=== PATIENT | male | born 1970 | race Caucasian/White ===

== ENCOUNTER → 2021-08-12 | Outpatient (CLI) | payer OTHER ==
--- NOTE | 2021-08-12 13:07 | Diagnostic Imaging Report ---
INDICATION: Pain in the left knee. TIME OF EXAM: 10:40 AM. FINDINGS: Multiple views of the left knee demonstrate normal alignment. The joint spaces are well maintained. The articular surfaces are smooth. No fracture, dislocation, or effusion is seen. IMPRESSION: No acute bony abnormality is detected. Dictated by: Dictated on workstation # [id number]
== END ==
LOC: RAD FS 10:25
PROVIDERS: ATTEND Nurse Practitioner
DX: M25.562 Pain in left knee (principal)
CPT/HCPCS: 73562

== ENCOUNTER 2022-07-04 01:45 | Emergency (ER) | payer OTHER ==
[~2022-07-04] VITALS: Ht 170 cm; Wt 95.0 kg
--- NOTE | 2022-07-04 01:59 | ED General ---
General Stated Complaint: PASSED OUT Source of Information: Patient, EMS Exam Limitations: No Limitations History of Present Illness Date Seen by Provider: Jul 04, 2022 Time Seen by Provider: 01:54 Initial Comments Patient is a 51-year-old male who presents to the emergency room by ambulance [place]. Patient states that he was sitting at a poker table playing blackjack on a high stool. He states he started to feel little nauseous and knew that he might pass out. He states the hospital fellow caught him. He did not fall out of the chair. He feels back to normal now. He does not have a headache. He denies palpitations or shortness of breath. No abdominal pain or back pain. He denies chest pain, pressure or heaviness or tightness. No recent illnesses. He had not taken his blood pressure pills this evening and EMS reports that when they got to him he was quite hypotensive in the 80s systolic. Not tachycardic heart rate in the 60s. Blood sugar was nor mal. When he came to he was acting normal. He states that he has had a syncopal event in the past similar to this while out at the casino. He states he did not eat dinner, he and his were out and he "won and lost, won and lost". He states he "drank a lot of beer". Timing/Duration: 1/2 Hour Severity: Moderate Associated Systoms: Denies Symptoms Allergies and Home Medications Patient Home Medication List Home Medication List Reviewed: Yes Review of Systems Review of Systems Constitutional: see HPI EENTM: no symptoms reported Respiratory: no symptoms reported Cardiovascular: no symptoms reported Gastrointestinal: nausea Genitourinary: no symptoms reported Musculoskeletal: no symptoms reported Skin: no symptoms reported Psychiatric/Neurological: No Symptoms Reported Physical Exam Vital Signs Vital Signs - First Documented 07/04/22 07/04/22 01:45 03:12 Temp 36.3 Pulse 76 Resp 18 B/P (MAP) 107/78 (88) Pulse Ox 99 O2 Delivery Room Air Capillary Refill : Height, Weight, BMI Height: '" Weight: lbs. oz. kg; BMI Method: General Appearance: No Apparent Distress, WD/WN Eyes: Bilateral Eye Normal Inspection, Bilateral Eye PERRL, Bilateral Eye EOMI HEENT: PERRL/EOMI, Moist Mucous Membranes Neck: Full Range of Motion, Normal Inspection Respiratory: Lungs Clear, Normal Breath Sounds, No Accessory Muscle Use Cardiovascular: Regular Rate, Rhythm, Normal Peripheral Pulses Gastrointestinal: Soft Back: Normal Inspection, No Vertebral Tenderness Extremity: Normal Capillary Refill, Normal Inspection, Normal Range of Motion, Non Tender, No Calf Tenderness Neurologic/Psychiatric: Alert, Oriented x3, No Motor/Sensory Deficits, Normal Mood/Affect, senior category manager II-XII Norm as Tested, Other (jovial, interactive; no focal neuro deficits) Skin: Normal Color, Warm/Dry Progress/Results/Core Measures Suspected Sepsis SIRS Temperature: Pulse: Respiratory Rate: Laboratory Tests 07/04/22 02:10: White Blood Count 8.8 Blood Pressure / Mean: Laboratory Tests 07/04/22 02:10: Creatinine 1.23, Platelet Count 232, Total Bilirubin 1.1H Results/Orders Lab Results Laboratory Tests Test 07/04/22 02:10 Range/Units White Blood Count 8.8 4.3-11.0 10^3/uL Red Blood Count 3.94 L 4.30-5.52 10^6/uL Hemoglobin 12.8 L 13.3-17.7 g/dL Hematocrit 36 L 40-54 % Mean Corpuscular Volume 90 80-99 fL Mean Corpuscular Hemoglobin 33 25-34 pg Mean Corpuscular Hemoglobin Concent 36 32-36 g/dL Red Cell Distribution Width 11.6 10.0-14.5 % Platelet Count 232 130-400 10^3/uL Mean Platelet Volume 9.0 9.0-12.2 fL Immature Granulocyte % (Auto) 1 % Neutrophils (%) (Auto) 63 42-75 % Lymphocytes (%) (Auto) 27 12-44 % Monocytes (%) (Auto) 8 0-12 % Eosinophils (%) (Auto) 1 0-10 % Basophils (%) (Auto) 1 0-10 % Neutrophils # (Auto) 5.6 1.8-7.8 10^3/uL Lymphocytes # (Auto) 2.3 1.0-4.0 10^3/uL Monocytes # (Auto) 0.7 0.0-1.0 10^3/uL Eosinophils # (Auto) 0.1 0.0-0.3 10^3/uL Basophils # (Auto) 0.0 0.0-0.1 10^3/uL Immature Granulocyte # (Auto) 0.0 0.0-0.1 10^3/uL Sodium Level 129 L 135-145 MMOL/L Potassium Level 4.0 3.6-5.0 MMOL/L Chloride Level 96 L 98-107 MMOL/L Carbon Dioxide Level 18 L 21-32 MMOL/L Anion Gap 15 H 5-14 MMOL/L Blood Urea Nitrogen 14 7-18 MG/DL Creatinine 1.23 0.60-1.30 MG/DL Estimat Glomerular Filtration Rate 72 BUN/Creatinine Ratio 11 Glucose Level 115 H 70-105 MG/DL Calcium Level 8.1 L 8.5-10.1 MG/DL Corrected Calcium 7.9 L 8.5-10.1 MG/DL Total Bilirubin 1.1 H 0.1-1.0 MG/DL Aspartate Amino Transf (AST/SGOT) 65 H 5-34 U/L Alanine Aminotransferase (ALT/SGPT) 97 H 0-55 U/L Alkaline Phosphatase 82 40-136 U/L Total Protein 6.3 L 6.4-8.2 GM/DL Albumin 4.2 3.2-4.5 GM/DL Serum Alcohol 230 H <10 MG/DL My Orders Orders - FREDERICK CHEN MD Ed Iv/Invasive Line Start (07/04/22 02:07) Cbc With Automated Diff (07/04/22 02:07) Comprehensive Metabolic Panel (07/04/22 02:07) Ekg Tracing (07/04/22 02:07) Alcohol (07/04/22 02:07) Vital Signs/I&O 07/04/22 07/04/22 01:45 03:12 Temp 36.3 36.5 Pulse 76 88 Resp 18 16 B/P (MAP) 107/78 (88) 104/63 Pulse Ox 99 O2 Delivery Room Air Capillary Refill : Progress Note : Time: 02:58 Progress Note Patient seen and evaluated by me, 51-year-old male with syncopal episode at the local [facility]. Evaluation today includes physical exam, CBC, Chem-12, alcohol level and EKG. Physical exam pertinent for regular heart rhythm with no murmurs auscultated. Clear lungs, soft nontender abdomen. Moving all extremities. Patient was noted to be incontinent. No extremity issues. HEENT exam unremarkable. Neurologically normal. Differential diagnosis based on history and physical exam, arrhythmia, dehydration, seizure, syncope due to excessive etoh and vagal response. Labs reviewed, CBC is normal, chemistry shows evidence of dehydration with slightly decreased CO2. Liver functions are elevated consistent with likely chronic alcohol use. EKG shows normal sinus rhythm without ectopy or ST segment change. Patient was treated in the emergency room with normal saline. He remains neurologically normal, awake alert oriented, in a good mood. No complaints. is at the bedside and states that he has passed out at least twice before. He has not had any type of neurologic evaluation or cardiac evaluation for syncope. She states he has had stress test in the past. No concerning findings for arrhythmia at this time. His blood pressure was reported to be in the 80s systolic per EMS. He is up to 10 7-1 10 systolic currently. Not tachycardic. Low clinical concern for seizure. As stated no concern for arrhythmia at this time. I discussed follow-up with the patient and his . He needs to see his primary care and likely tax record clerk for follow- up, would recommend a Holter monitor. He is comfortable with the plan of care. He is eager for discharge. All questions are sought and answered. ECG Initial ECG Impression Date: Jul 04, 2022 Initial ECG Impression Time: 02:01 Initial ECG Rate: 77 Initial ECG Rhythm: Normal Sinus Initial ECG Intervals: Normal Initial ECG Impression: Normal Departure Impression Primary Impression: Syncope Qualified Codes: R55 - Syncope and collapse Additional Impressions: Dehydration Alcohol intoxication Qualified Codes: F10.929 - Alcohol use, unspecified with intoxication, unspecified Elevated liver function tests Disposition: HOME, SELF-CARE Condition: Improved Departure-Patient Inst. Decision time for Depature: 03:02 Referrals: RUI PAULINO DO (PCP/Family) Primary Care Physician RAMIREZ BOO MD Patient Instructions: Syncope (Fainting) (DC) Add. Discharge Instructions: Drink lots of water tomorrow to re-hydrate. You need to follow up with your primary care doctor Wednesday. Also would be benef icial to follow up with a tax record clerk due to the passing out spell and maybe have a monitor placed to evaluate your heart rhythm. I have attached contact information for the tax record clerk production artist, Dr Boo. Try and cut back on your alcohol use as it is affecting your liver function. Do not take your blood pressure medications tonight. Return to the Emergency Department for any new, concerning or emergent complaints. Copy Copies To 1: RUI PAULINO KATHRYN M MD Jul 04, 2022 01:59
[2022-07-04 02:18] LABS: BASOPHILS % (AUTO) 1 % (0-10); EOSINOPHILS # (AUTO) 0.1 10^3/uL (0.0-0.3); EOSINOPHILS % (AUTO) 1 % (0-10); HEMATOCRIT 36 % (40-54); HEMOGLOBIN 12.8 g/dL (13.3-17.7); LYMPHOCYTES # (AUTO) 2.3 10^3/uL (1.0-4.0); LYMPHOCYTES % (AUTO) 27 % (12-44); MEAN CORPUSCULAR HEMOGLOBIN 33 pg (25-34); MEAN CORPUSCULAR HGB CONC 36 g/dL (32-36); MEAN CORPUSCULAR VOLUME 90 fL (80-99); MONOCYTES # (AUTO) 0.7 10^3/uL (0.0-1.0); MONOCYTES % (AUTO) 8 % (0-12); NEUTROPHILS # (AUTO) 5.6 10^3/uL (1.8-7.8); NEUTROPHILS % (AUTO) 63 % (42-75); PLATELET COUNT 232 10^3/uL (130-400); WHITE BLOOD COUNT 8.8 10^3/uL (4.3-11.0)
[2022-07-04 02:25] LABS: ALBUMIN 4.2 GM/DL (3.2-4.5)
[2022-07-04 02:26] LABS: CALCIUM 8.1 MG/DL (8.5-10.1)
[2022-07-04 02:28] LABS: TOTAL PROTEIN 6.3 GM/DL (6.4-8.2)
[2022-07-04 02:29] LABS: BILIRUBIN,TOTAL 1.1 MG/DL (0.1-1.0)
[2022-07-04 02:32] LABS: CREATININE SERUM 1.23 MG/DL (0.60-1.30)
[2022-07-04 03:12] VITALS: BP 104/63
== END 2022-07-04 03:17 | disposition home or self-care (01) ==
LOC: EDUNIT# 01:45 → ER 01:46
DX: R55 Syncope and collapse (principal); E86.0 Dehydration; F10.129 Alcohol abuse with intoxication, unspecified; R79.81 Abnormal blood-gas level; Y90.7 Blood alcohol level of 200-239 mg/100 ml
CPT/HCPCS: 80053; 85025; 93005; 99283; G0480; 36415; 80320